=== PATIENT | male | born 1995 | race Caucasian/White ===

== ENCOUNTER 2017-02-22 13:36 | Inpatient (IN) | payer BC ==
[2017-02-22] MEDS ORDERED: SODIUM CHLORIDE 0.9% 1,000 ML IV STA (14:27)
[2017-02-22] MEDS ORDERED: KETOROLAC 30 MG/ML 1 ML VIAL IVP STA (14:27)
[2017-02-22] MEDS ORDERED: LIDOCAINE VISCOUS 2% 15 ML CUP MUCOUS MEM ONE (14:28)
--- NOTE | 2017-02-22 14:35 | ED ---
ENT HPI - General Source: patient, RN notes reviewed Mode of arrival: ambulatory Limitations: no limitations <Milena Del Rosario - Last Filed: 02/22/17 17:22> <Francisco Allred - Last Filed: 02/22/17 19:42> - General Chief complaint: ENT Stated complaint: Sore Throat Time Seen by Provider: 02/22/17 14:15 - History of Present Illness Initial comments: 21-year-old male presents to the emergency Department chief complaint sore throat. Patient states he has had a sore throat for the past 3 weeks or so. Patient states his first diagnosed with tonsillitis and placed on antibiotics and then it moved to the left side. Patient states he then saw his doctor and she told him he had mono and he was sent home. Patient states he just continues to have the sore throat he continues to feel weak and he continues to feel an increased amount pains without that he should be seen. Patient states his been no nausea vomiting. Patient denies any high fever. Patient denies any abdominal pain. Patient states that he does just feel weak and achy. Patient states she was concerned due to his symptoms. Patient denies any recent shortness of breath, chest pain, back pain, abdominal pain, nausea vomiting, numbness or tingling, dysuria or hematuria, constipation or diarrhea, headaches or visual changes, or any other current symptoms. (Milena Del Rosario) - Related Data Home Medications Medication Instructions Recorded Confirmed Azithromycin [Zithromax Z-pack] 250 mg PO DAILY 02/22/17 02/22/17 Ibuprofen [Motrin] 600 mg PO Q8HR PRN 02/22/17 02/22/17 Allergies Allergy/AdvReac Type Severity Reaction Status Date / Time No Known Allergies Allergy Verified 02/22/17 14:29 Review of Systems ROS Other: All systems not noted in ROS Statement are negative. <Milena Del Rosario - Last Filed: 02/22/17 17:22> ROS Other: All systems not noted in ROS Statement are negative. <Francisco Allred - Last Filed: 02/22/17 19:42> ROS Statement: Those systems with pertinent positive or pertinent negative responses have been documented in the HPI. Past Medical History Additional Past Medical History / Comment(s): mono, tonsilitis, (R) ankle fx, (R ) pelvis fx. History of Any Multi-Drug Resistant Organisms: None Reported Past Surgical History: No Surgical Hx Reported Past Psychological History: No Psychological Hx Reported Smoking Status: Current every day smoker Past Alcohol Use History: None Reported Past Drug Use History: None Reported <Milena Del Rosario - Last Filed: 02/22/17 17:22> General Exam Limitations: no limitations <Milena Del Rosario - Last Filed: 02/22/17 17:22> <Francisco Allred - Last Filed: 02/22/17 19:42> - General Exam Comments Initial Comments: General exam: Alert, active, comfortable in no apparent distress Head: Normocephalic Eyes: Normal reaction of pupils, equal size, normal range of extraocular motion Ears: normal external ear canals, pink tympanic membranes with normal cone of light Nose: clear with pink turbinates Throat: Erythematous with exudates with enlarged tonsils Neck: no masses, no nuchal rigidity Chest: no chest wall deformity Lungs: equal air entry with no crackles or wheeze CVS: S1 and S2 normal with no audible mumurs, regular rhythm Abdomen: no hepatosplenomegaly, normal bowel sounds, no guarding or rigidity Spine: no scoliosis or deformity Skin: no rashes Neurological: No focal deficits, tone is normal in all 4 extremities (Milena Del Rosario ) Medical Decision Making - Lab Data Result diagrams: 02/22/17 14:45 02/22/17 14:45 - Radiology Data Radiology results: report reviewed, image reviewed <Milena Del Rosario - Last Filed: 02/22/17 17:22> - Lab Data Result diagrams: 02/22/17 14:45 02/22/17 14:45 <Francisco Allred - Last Filed: 02/22/17 19:42> - Medical Decision Making 21-year-old male presents emergency room chief complaint of sore throat. Patient's lab work is reviewed. At this time due to the patient's tonsillitis that has failed outpatient treatment we will admit. Patient was started on Unasyn. CT was reviewed that is showing some swelling this and there is no clear abscess there is concern for peritonsillar abscess. Patient is in agreement with the plan. (Milena Del Rosario) 21-year-old male presenting with sore throat. Patient has marked erythema and swelling of the bilateral tonsils, there is some left-sided asymmetry of the posterior oropharynx. Patient is unable to tolerate oral fluids. White count is 26,000. Computed tomography scan of the soft tissue neck reveals a phlegmon concerning for early abscess. This would likely form into peritonsillar abscess. Patient is given IV antibiotics. He will be admitted for IV fluids, IV antibiotics and ENT evaluation. (Francisco Allred) - Lab Data Lab Results 02/22/17 02/22/17 02/22/17 Range/Units 14:45 14:45 14:45 WBC 26.0 H* (3.8-10.6) k/uL RBC 4.55 (4.30-5.90) m/uL Hgb 14.6 (13.0-17.5) gm/dL Hct 40.7 (39.0-53.0) % MCV 89.5 (80.0-100.0) fL MCH 32.0 (25.0-35.0) pg MCHC 35.8 (31.0-37.0) g/dL RDW 12.8 (11.5-15.5) % Plt Count 172 (150-450) k/uL Neutrophils % 89 % Lymphocytes % 4 % Monocytes % 5 % Eosinophils % 0 % Basophils % 0 % Neutrophils # 23.1 H (1.3-7.7) k/uL Lymphocytes # 1.1 (1.0-4.8) k/uL Monocytes # 1.3 H (0-1.0) k/uL Eosinophils # 0.1 (0-0.7) k/uL Basophils # 0.0 (0-0.2) k/uL Sodium 144 (137-145) mmol/L Potassium 4.0 (3.5-5.1) mmol/L Chloride 107 (98-107) mmol/L Carbon Dioxide 25 (22-30) mmol/L Anion Gap 12 mmol/L BUN 11 (9-20) mg/dL Creatinine 0.78 (0.66-1.25) mg/dL Est GFR (MDRD) Af Amer >60 (>60 ml/min/1.73 sqM) Est GFR (MDRD) Non-Af >60 (>60 ml/min/1.73 sqM) Glucose 91 (74-99) mg/dL Calcium 9.5 (8.4-10.2) mg/dL Total Bilirubin 0.7 (0.2-1.3) mg/dL AST 20 (17-59) U/L ALT 33 (21-72) U/L Alkaline Phosphatase 88 (38-126) U/L Total Protein 7.3 (6.3-8.2) g/dL Albumin 4.2 (3.5-5.0) g/dL Heterophile Antibody Negative (Negative) Group A Strep Rapid (Negative) 02/22/17 Range/Units 14:45 WBC (3.8-10.6) k/uL RBC (4.30-5.90) m/uL Hgb (13.0-17.5) gm/dL Hct (39.0-53.0) % MCV (80.0-100.0) fL MCH (25.0-35.0) pg MCHC (31.0-37.0) g/dL RDW (11.5-15.5) % Plt Count (150-450) k/uL Neutrophils % % Lymphocytes % % Monocytes % % Eosinophils % % Basophils % % Neutrophils # (1.3-7.7) k/uL Lymphocytes # (1.0-4.8) k/uL Monocytes # (0-1.0) k/uL Eosinophils # (0-0.7) k/uL Basophils # (0-0.2) k/uL Sodium (137-145) mmol/L Potassium (3.5-5.1) mmol/L Chloride (98-107) mmol/L Carbon Dioxide (22-30) mmol/L Anion Gap mmol/L BUN (9-20) mg/dL Creatinine (0.66-1.25) mg/dL Est GFR (MDRD) Af Amer (>60 ml/min/1.73 sqM) Est GFR (MDRD) Non-Af (>60 ml/min/1.73 sqM) Glucose (74-99) mg/dL Calcium (8.4-10.2) mg/dL Total Bilirubin (0.2-1.3) mg/dL AST (17-59) U/L ALT (21-72) U/L Alkaline Phosphatase (38-126) U/L Total Protein (6.3-8.2) g/dL Albumin (3.5-5.0) g/dL Heterophile Antibody (Negative) Group A Strep Rapid Negative (Negative) Disposition Time of Disposition: 17:26 Decision Date: 02/22/17 Decision Time: 17:26 <Milena Del Rosario - Last Filed: 02/22/17 17:22> <Francisco Allred - Last Filed: 02/22/17 19:42> Clinical Impression: Acute bacterial tonsillitis Disposition: ADMITTED IP TO THIS [facility] Condition: Stable
[2017-02-22 15:00] LABS: Basophils % (A) 0 %; CH 30.6; CHCM 34.3; Eosinophils # (A) 0.1 k/uL (0-0.7); Eosinophils % (A) 0 %; HCT 40.7 % (39.0-53.0); HDW 2.62; HGB 14.6 gm/dL (13.0-17.5); Luc # (Auto) 0.31; Luc % (Auto) 1; Lymphocytes # (A) 1.1 k/uL (1.0-4.8); Lymphocytes % (A) 4 %; MCHC 35.8 g/dL (31.0-37.0); MCV 89.5 fL (80.0-100.0); Mean Platelet Volume 7.4; Monocytes # (A) 1.3 k/uL (0-1.0); Monocytes % (A) 5 %; Neutrophils # (A) 23.1 k/uL (1.3-7.7); Neutrophils % (A) 89 %; RBC 4.55 m/uL (4.30-5.90); RDW 12.8 % (11.5-15.5)
[2017-02-22 15:05] LABS: ALT 33 U/L (21-72); AST 20 U/L (17-59); Alkaline Phosphatase 88 U/L (38-126); Anion Gap 12 mmol/L; Blood Urea Nitrogen 11 mg/dL (9-20); Calcium 9.5 mg/dL (8.4-10.2); Carbon Dioxide 25 mmol/L (22-30); Chloride 107 mmol/L (98-107); Glucose 91 mg/dL (74-99); Non-African American GFR(MDRD) >60 (>60 ml/min/1.73 sqM); Sodium 144 mmol/L (137-145); Total Bilirubin 0.7 mg/dL (0.2-1.3); Total Protein 7.3 g/dL (6.3-8.2)
[2017-02-22] MEDS ORDERED: AMPICILLIN-SULBACTAM 3 GM in SODIUM CHLORIDE 0.9% 100 ML IVPB STA (15:08)
[2017-02-22] MEDS ORDERED: RX INFO: IV CONTRAST WAS GIVEN 1 EACH MISC MISCELLANE PRN (15:13)
--- NOTE | 2017-02-22 16:21 | XR ---
EXAMINATION TYPE: XR chest 2V DATE OF EXAM: 02/22/2017 COMPARISON: NONE INDICATION: Cough, body ache TECHNIQUE: Frontal and lateral views of the chest are obtained. FINDINGS: The heart size is normal. The pulmonary vasculature is normal. The lungs are clear. IMPRESSION: 1. No acute pulmonary process.
--- NOTE | 2017-02-22 16:38 | CT ---
EXAMINATION TYPE: CT soft tissue neck w con DATE OF EXAM: 02/22/2017 COMPARISON: NONE HISTORY: Sore throat CT DLP: 687 mGycm CONTRAST: Patient injected with 100 ml mL of Omnipaque 300. TECHNIQUE: Axial images at 3 mm thick sections. Reconstructed images in the coronal plane and sagitt al plane are reviewed. FINDINGS: Limited CT sections are obtained the lung apices. The lung apices appear clear. CT neck: The torus tubarius and fossa of Rosenmuller are normal. General Neurologist spaces are normal. Para nasal sinuses and mastoid air cells are clear. There is fullness of the left tonsillar pillar. Discrete underlying mass is not identified. Correlate for phlegmon. This extends to the piriform sinuses. Parotid glands appear normal and symmetrical. Submandibular glands, are normal. Parapharyngeal spac es are normal. No suspicious adenopathy is evident. Vocal cord level appear symmetrical. Thyroid as visualized is normal. Subglottic airway is unremarkable. Osseous structures are normal. IMPRESSIONS: 1. Fullness within the left tonsillar pillar without discrete underlying abscess. Consider phlegmon w ithin the differential.
[2017-02-22] MEDS ORDERED: DEXAMETHASONE SOD PHOSPHATE 10 MG/ML 1 ML VIAL IV STA (16:53)
[2017-02-22] MEDS ORDERED: KETOROLAC 30 MG/ML 1 ML VIAL IVP PRN (17:27)
[2017-02-22] MEDS ORDERED: IBUPROFEN 400 MG TAB PO PRN (17:27)
[2017-02-22] MEDS ORDERED: ACETAMINOPHEN TAB 325 MG TAB PO PRN (17:27)
[2017-02-22] MEDS ORDERED: NALOXONE 0.4 MG/ML 1 ML VIAL IV PRN (17:27)
[2017-02-22] MEDS ORDERED: ONDANSETRON 4 MG/2 ML VIAL IVP PRN (17:27)
[2017-02-22] MEDS: SODIUM CHLORIDE 0.9% 1,000 ML IV SCH (17:48)
[2017-02-22] MEDS: AMPICILLIN-SULBACTAM 3 GM in SODIUM CHLORIDE 0.9% 100 ML IVPB SCH (23:04)
[2017-02-23] MEDS: SODIUM CHLORIDE 0.9% 1,000 ML IV SCH (05:57)
[2017-02-23 06:36] LABS: Basophils % (A) 0 %; CH 29.9; CHCM 31.9; Eosinophils % (A) 0 %; HCT 42.4 % (39.0-53.0); HDW 2.61; HGB 14.1 gm/dL (13.0-17.5); Luc # (Auto) 0.11; Luc % (Auto) 1; Lymphocytes # (A) 0.6 k/uL (1.0-4.8); Lymphocytes % (A) 3 %; MCH 31.3 pg (25.0-35.0); MCHC 33.3 g/dL (31.0-37.0); Monocytes # (A) 0.5 k/uL (0-1.0); Monocytes % (A) 2 %; Neutrophils # (A) 19.7 k/uL (1.3-7.7); Neutrophils % (A) 94 %; RBC 4.51 m/uL (4.30-5.90); RDW 12.8 % (11.5-15.5); WBC (Perox) 20.33
[2017-02-23] MEDS: AMPICILLIN-SULBACTAM 3 GM in SODIUM CHLORIDE 0.9% 100 ML IVPB SCH (07:47)
[2017-02-23 08:13] VITALS: BP 119/63; PULSE 66; RESP 17; TEMP 97.7
[2017-02-23 08:17] LABS: Anion Gap 11 mmol/L; Blood Urea Nitrogen 13 mg/dL (9-20); Calcium 9.5 mg/dL (8.4-10.2); Carbon Dioxide 20 mmol/L (22-30); Chloride 110 mmol/L (98-107); Glucose 127 mg/dL (74-99); Non-African American GFR(MDRD) >60 (>60 ml/min/1.73 sqM); Potassium 4.8 mmol/L (3.5-5.1); Sodium 141 mmol/L (137-145)
[2017-02-23] MEDS ORDERED: methylPREDNISolone SOD SUCCI 125 MG/2 ML VIAL IV SCH (08:30)
--- NOTE | 2017-02-23 14:28 | P.HPIM ---
History of Present Illness 21-year-old male presents to the chief complaint sore throat, patient's symptoms started with right ear pain and infection patient was given amoxicillin which was subsequently switched to azithromycin with PCP . Patient was tested for infectious mononucleosis, which was negative. Because of severe tonsillitis and severe pain extending from right ear to bilateral tonsils patient was admitted with IV antibiotics patient is irregular antibiotics and systemic steroids. Patient has significant clinical improvement I discussed with ENT specialist and patient will be discharged on Augmentin for 7 days to follow up with ENT as an outpatient. Patient doesn't have any fevers. Denied any cough runny nose dysuria nausea vomiting. Patient states he has had a sore throat for the past 3 weeks or so. Review of Systems REVIEW OF SYSTEMS: CONSTITUTIONAL: No fever, no malaise, no fatigue. HEENT: No recent visual problems or hearing problems. Patient denied any nasal discharge CARDIOVASCULAR: No chest pain, orthopnea, PND, no palpitations, no syncope. PULMONARY: No shortness of breath, no cough, no hemoptysis. GASTROINTESTINAL: No diarrhea, no nausea, no vomiting, no abdominal pain. Normoactive bowel sounds. NEUROLOGICAL: No headaches, no weakness, no numbness. HEMATOLOGICAL: Denies any bleeding or petechiae. GENITOURINARY: Denies any burning micturition, frequency, or urgency. MUSCULOSKELETAL/RHEUMATOLOGICAL: Denies any joint pain, swelling, or any muscle pain. ENDOCRINE: Denies any polyuria or polydipsia. The rest of the 14-point review of systems is negative. Past Medical History Additional Past Medical History / Comment(s): mono, tonsilitis, (R) ankle fx, (R ) pelvis fx. History of Any Multi-Drug Resistant Organisms: None Reported Past Surgical History: Ear Surgery, Orthopedic Surgery Past Anesthesia/Blood Transfusion Reactions: No Reported Reaction Past Psychological History: No Psychological Hx Reported Smoking Status: Current every day smoker Past Alcohol Use History: None Reported Past Drug Use History: None Reported Medications and Allergies Home Medications Medication Instructions Recorded Confirmed Type Ibuprofen [Motrin] 600 mg PO Q8HR PRN 02/22/17 02/22/17 History Allergies Allergy/AdvReac Type Severity Reaction Status Date / Time No Known Allergies Allergy Verified 02/22/17 14:29 Physical Exam Vitals: Vital Signs Temp Pulse Pulse Resp BP BP Pulse Ox 02/23/17 07:00 97.7 F 66 17 119/63 95 02/23/17 02:45 98.2 F 61 16 104/66 98 02/22/17 18:55 98.2 F 85 16 139/66 95 02/22/17 18:37 97.1 F L 84 18 108/50 97 02/22/17 16:02 79 18 113/47 97 Intake and Output 02/22/17 02/23/17 02/23/17 22:59 06:59 14:59 Intake Total 450 900 Balance 450 900 Intake: Intake, IV Titration 250 900 Amount Ampicillin-Sulbactam 3 gm 100 In Sodium Chloride 0.9% 100 ml @ 100 mls/hr IVPB Q8HR ERNESTO Rx#:[id number] Sodium Chloride 0.9% 1, 250 800 000 ml @ 100 mls/hr IV . Q10H ERNESTO Rx#:[id number] Oral 200 Other: Voiding Method Toilet # Voids 2 PHYSICAL EXAMINATION: GENERAL: The patient is alert and oriented x3, not in any acute distress. Well developed, well nourished. HEENT: Pupils are round and equally reacting to light. EOMI. No scleral icterus. No conjunctival pallor. Normocephalic, atraumatic.. No thyromegaly. Patient has significant redness in the posterior pharyngeal wall with enlarged tonsils without any pus possible abscesses low. Middle ear was evaluated in ER. CARDIOVASCULAR: S1 and S2 present. No murmurs, rubs, or gallops. PULMONARY: Chest is clear to auscultation, no wheezing or crackles. ABDOMEN: Soft, nontender, nondistended, normoactive bowel sounds. No palpable organomegaly. MUSCULOSKELETAL: No joint swelling or deformity. EXTREMITIES: No cyanosis, clubbing, or pedal edema. NEUROLOGICAL: Gross neurological examination did not reveal any focal deficits. SKIN: No rashes. Results CBC & Chem 7: 02/23/17 06:12 02/23/17 06:12 Labs: Abnormal Lab Results - Last 24 Hours (Table) 02/22/17 02/23/17 02/23/17 Range/Units 14:45 06:12 06:12 WBC 26.0 H* 21.0 H (3.8-10.6) k/uL Plt Count 145 L (150-450) k/uL Neutrophils # 23.1 H 19.7 H (1.3-7.7) k/uL Lymphocytes # 0.6 L (1.0-4.8) k/uL Monocytes # 1.3 H (0-1.0) k/uL Chloride 110 H (98-107) mmol/L Carbon Dioxide 20 L (22-30) mmol/L Glucose 127 H (74-99) mg/dL Microbiology - Last 24 Hours (Table) 02/22/17 14:45 Group A Strep Throat Culture - Preliminary Throat Thrombosis Risk Factor Assmnt - Choose All That Apply Other Risk Factors: No Other congenital or acquired thrombophilia - If yes, enter type in comment: No Assessment and Plan Plan: #1 acute tonsillitis: Severe on admission which improved with the systemic steroids and patient was discharged on Augmentin for 7 more days with follow-up with ENT as an outpatient. #2 acute suppurative otitis media in the right ear. #3 nicotine abuse: Counseled was provided
--- NOTE | 2017-02-23 14:29 | P.DS ---
Providers Date of admission: 02/22/17 17:59 Attending physician: Erick Vizcaino Primary care physician: Mouna Hoffman [facility] Course: Please refer to HPI Patient Condition at Discharge: Stable Plan - Discharge Summary New Discharge Prescriptions: New Amoxic-Pot Clav 875-125Mg [Augmentin 875-125] 1 tab PO Q12HR #14 tablet Discontinued Azithromycin [Zithromax Z-pack] 250 mg PO DAILY No Action Ibuprofen [Motrin] 600 mg PO Q8HR PRN PRN Reason: Pain Discharge Medication List Ibuprofen [Motrin] 600 mg PO Q8HR PRN 02/22/17 [History] Amoxic-Pot Clav 875-125Mg [Augmentin 875-125] 1 tab PO Q12HR #14 tablet [Rx] Follow up Appointment(s)/Referral(s): Roby Marshall DO [Doctor of Osteopathic Medicine] - 1 Week (Please call to make follow up appointment) Mouna Hoffman MD [Primary Care Provider] - 3 Days (Please call to make follow up appointment) Patient Instructions/Handouts: Tonsillitis (DC) Discharge Disposition: HOME SELF-CARE
== END 2017-02-23 13:58 | disposition home or self-care (01) | DRG 153 ==
LOC: EC 13:36 → 3SUR 17:59
PROVIDERS: ADMIT Hospitalist; ATTEND Hospitalist
DX: J03.90 Acute tonsillitis, unspecified (principal); F17.200 Nicotine dependence, unspecified, uncomplicated; H66.009 Acute suppurative otitis media without spontaneous rupture of ear drum, unspecified ear
CPT/HCPCS: 36415; 70491; 71020; 80048; 80053; 85025; 86308; 87040; 87081; 87430